=== PATIENT | male | born 1980 | race Caucasian/White ===

== ENCOUNTER 2018-03-25 10:29 | Emergency (ER) | payer MEDICAID ==
[~2018-03-25] VITALS: Ht 177.8 cm; Wt 73.0 kg
[2018-03-25 10:31] VITALS: BP 105/79
[2018-03-25] MEDS ORDERED: CHLO473M3 PO (11:12)
[2018-03-25] MEDS ORDERED: AMOX500C2 PO (11:12)
== END 2018-03-25 11:22 | disposition home or self-care (01) ==
LOC: ER 10:30
DX: K08.89 Other specified disorders of teeth and supporting structures (principal)
CPT/HCPCS: 99283

== ENCOUNTER 2018-05-13 12:28 | Emergency (ER) | payer MEDICAID ==
[~2018-05-13] VITALS: Ht 177.8 cm; Wt 79.2 kg
[~2018-05-13 12:28] MED LIST: CHLO473M3 PO
[2018-05-13 12:47] VITALS: BP 127/79
[2018-05-13] MEDS ORDERED: LIDO700A32 TP (14:24)
[2018-05-13] MEDS ORDERED: ACET-2615 PO (14:24)
[2018-05-13] MEDS ORDERED: BENZ-16 PO (14:24)
[2018-05-13] MEDS ORDERED: ketorolac trometh inj. 60 MG/2 ML VIAL IM ONE (14:25)
[2018-05-13] MEDS ORDERED: acetaminophen 325mg tablet PO ONE (14:25)
[2018-05-13] MEDS ORDERED: LIDOcaine 5% patch TP ONE (14:25)
== END 2018-05-13 14:51 | disposition home or self-care (01) ==
LOC: ER 12:29
DX: M94.0 Chondrocostal junction syndrome [Tietze] (principal); F17.200 Nicotine dependence, unspecified, uncomplicated; Z79.899 Other long term (current) drug therapy
CPT/HCPCS: 71046; 96372; 99283; J1885

== ENCOUNTER 2019-03-11 13:58 | Emergency (ER) | payer MEDICAID ==
[~2019-03-11] VITALS: Ht 172.7 cm; Wt 90.0 kg
[~2019-03-11 13:58] MED LIST changes: +LIDO700A32 TP
[2019-03-11 14:04] VITALS: BP 112/69
== END 2019-03-11 15:01 | disposition home or self-care (01) ==
LOC: ER 13:59
DX: S01.81XA Laceration without foreign body of other part of head, initial encounter (principal); Z79.899 Other long term (current) drug therapy; W22.8XXA Striking against or struck by other objects, initial encounter; Y93.89 Activity, other specified; Y92.89 Other specified places as the place of occurrence of the external cause; Y99.8 Other external cause status
CPT/HCPCS: 12013; 99283

== ENCOUNTER 2019-03-17 15:24 | Emergency (ER) | payer MEDICAID ==
[~2019-03-17] VITALS: Ht 175.3 cm; Wt 79.0 kg
[2019-03-17 15:44] VITALS: BP 130/80
== END 2019-03-17 16:23 | disposition home or self-care (01) ==
LOC: ER 15:25
DX: S01.81XD Laceration without foreign body of other part of head, subsequent encounter (principal); Z79.899 Other long term (current) drug therapy; X58.XXXD Exposure to other specified factors, subsequent encounter
CPT/HCPCS: 99281

== ENCOUNTER 2019-04-09 18:38 | Emergency (ER) | payer MEDICAID ==
[~2019-04-09] VITALS: Ht 177.8 cm; Wt 75.6 kg
[2019-04-09] MEDS ORDERED: BENZ-16 PO (20:53)
[2019-04-09] MEDS ORDERED: oxymetazoline 15 ML nasal spray NS ONE (20:55)
[2019-04-09] MEDS ORDERED: ketorolac trometh inj. 60 MG/2 ML VIAL IM ONE (20:55)
[2019-04-09 21:44] VITALS: BP 137/69
== END 2019-04-09 21:39 | disposition home or self-care (01) ==
LOC: ER 18:38
DX: J20.9 Acute bronchitis, unspecified (principal); F17.200 Nicotine dependence, unspecified, uncomplicated; Z79.899 Other long term (current) drug therapy
CPT/HCPCS: 71046; 96372; 99283; J1885

== ENCOUNTER 2019-04-25 16:47 | Emergency (ER) | payer MEDICAID ==
[~2019-04-25] VITALS: Ht 180.3 cm; Wt 74.0 kg
[~2019-04-25 16:47] MED LIST changes: +BENZ-16 PO
[2019-04-25 16:53] VITALS: BP 100/71
[2019-04-25] MEDS ORDERED: ALBU8HFA PO (17:38)
[2019-04-25] MEDS ORDERED: PRED20TA PO (17:38)
== END 2019-04-25 18:02 | disposition home or self-care (01) ==
LOC: ER 16:48
DX: J40 Bronchitis, not specified as acute or chronic (principal); F12.90 Cannabis use, unspecified, uncomplicated; F17.200 Nicotine dependence, unspecified, uncomplicated; Z79.899 Other long term (current) drug therapy
CPT/HCPCS: 99283

== ENCOUNTER 2021-10-14 09:19 | Emergency (ER) | payer MEDICAID ==
[~2021-10-14] VITALS: Ht 180.3 cm; Wt 68.2 kg
[2021-10-14 09:21] VITALS: BP 114/75
[2021-10-14] MEDS ORDERED: GABA300C PO (09:35)
== END 2021-10-14 09:44 | disposition home or self-care (01) ==
LOC: ER 09:20
DX: F10.10 Alcohol abuse, uncomplicated (principal); F12.90 Cannabis use, unspecified, uncomplicated; Y90.9 Presence of alcohol in blood, level not specified
CPT/HCPCS: 99283

== ENCOUNTER → 2023-06-26 | Outpatient (CLI) | payer MEDICAID ==
[~2023-06-26] MED LIST changes: +GABA300C PO
== END | disposition home or self-care (01) ==
LOC: RAD 10:11
PROVIDERS: ATTEND Nurse Practitioner Primary Care
DX: S92.191A Other fracture of right talus, initial encounter for closed fracture (principal); M79.89 Other specified soft tissue disorders; M25.571 Pain in right ankle and joints of right foot; X58.XXXA Exposure to other specified factors, initial encounter; Y93.9 Activity, unspecified; Y92.89 Other specified places as the place of occurrence of the external cause; Y99.8 Other external cause status
CPT/HCPCS: 73610

== ENCOUNTER 2023-07-30 16:04 | Outpatient (CLI) | payer MEDICAID | END 2023-07-30 23:59 | disposition home or self-care (01) | LOC: RAD 16:04 | PROVIDERS: ATTEND Nurse Practitioner Primary Care | DX: M25.471 Effusion, right ankle (principal); M25.571 Pain in right ankle and joints of right foot | CPT/HCPCS: 73610 ==